=== PATIENT | female | born 1995 | race Caucasian/White ===

== ENCOUNTER 2017-11-09 07:13 | Emergency (ER) | payer OTHER ==
[~2017-11-09] VITALS: Ht 154.9 cm; Wt 94.6 kg
[~2017-11-09 07:13] MED LIST: ADVAIR 100-501 EACH IH; ADVAIR 100/501 DISK IH; ALBUTEROL SULF8.5 GM IH; PROAIR HFA8.5 GM; VENTOLIN HFA18 GM IH
[2017-11-09] MEDS ORDERED: CLARITIN10 M3 PO (07:43)
[2017-11-09 08:47] VITALS: BP 140/87
== END 2017-11-09 08:47 | disposition home or self-care (01) ==
LOC: EME 07:13
DX: L72.3 Sebaceous cyst (principal); E04.1 Nontoxic single thyroid nodule
CPT/HCPCS: 76536; 99281; 99283